=== PATIENT | male | born 1955 | race Caucasian/White ===

== ENCOUNTER 2016-04-08 10:57 | Inpatient (IN) ==
[2016-04-08] MEDS ORDERED: ONDANSETRON 4 MG/2 ML VIAL IV ONE (11:29)
--- NOTE | 2016-04-08 11:30 | Emergency Department Note ---
General Adult HPI - General Chief complaint: Weakness Stated complaint: Weakness Time Seen by Provider: 04/08/16 11:25 Source: patient, family Mode of arrival: ambulatory Limitations: no limitations - History of Present Illness HPI Narrative: This is a long-term alcoholic who hasn't had much medical care recently. He has become edematous and quite jaundiced. Also bloated with ascites and nauseated. Last drink this morning. - Related Data Home Medications Medication Instructions Recorded Confirmed amiodarone 200 mg tablet 200 mg PO QDAY tab 11/16/14 04/08/16 famotidine 20 mg tablet 20 mg PO QHS tab 11/16/14 04/08/16 furosemide 40 mg tablet 40 mg PO DAILY tab 11/16/14 04/08/16 glipizide 5 mg tablet 5 mg PO DAILY tab 11/16/14 04/08/16 magnesium oxide 400 mg tablet 400 mg PO BID tab 11/16/14 04/08/16 metformin 1,000 mg tablet 2,500 mg PO DAILY tab 11/16/14 04/08/16 potassium chloride ER 10 mEq 10 meq PO QDAY tab 11/16/14 04/08/16 tablet,extended release Previous Rx's Medication Instructions Recorded carvedilol 25 mg tablet 25 mg PO BID 90 Days 11/21/14 dabigatran etexilate 150 mg capsule 150 mg PO BID 90 Days 11/21/14 folic acid 1 mg tablet 1 mg PO QDAY 90 Days 11/21/14 Albuterol Sulfate 2.5 mg IH 3-4XD #60 ml 12/10/15 Amoxicillin/Potassium Clav 875 mg PO Q12H #20 tablet 03/13/16 [Augmentin] Allergies Allergy/AdvReac Type Severity Reaction Status Date / Time No Known Drug Allergies Allergy Verified 03/13/16 15:15 Review of Systems Constitutional: Denies: fever, chills Eyes: Denies: eye pain ENT ED: Denies: ear pain Cardiovascular: Denies: chest pain Respiratory: Denies: cough, dyspnea Gastrointestinal: Reports: nausea. Denies: abdominal pain, vomiting Genitourinary: Denies: urgency Musculoskeletal: Denies: back pain Integumentary: Denies: rash Neurological: Denies: headache Past Medical History - Past Medical History Medical history: Reports: asthma, atrial fibrillation (status post ablation), CHF, COPD, diabetes, hyperlipidemia, hypertension, other (alcohol abuse) Surgical history ED: Reports: cholecystectomy, herniorrhaphy, other (Right arm surgeries 2, left biceps repair, ablation) Psychiatric history: Reports: depression - Social History Alcohol use: Reports: Heavy Drug use: Reports: none Physical Exam - General Limitations: no limitations General appearance: alert - Head Head exam: atraumatic - Eye Eye exam: Present: normal appearance - ENT ENT exam: normal exam - Neck Neck exam: Present: normal inspection - Chest Chest inspection: Present: normal inspection - Respiratory Respiratory exam: Present: normal lung sounds bilaterally - Cardiovascular Cardiovascular exam: Present: regular rate, normal rhythm, normal heart sounds - Abdominal Exam Abdominal exam: Present: soft, distention, tenderness, ascites. Absent: guarding, rebound, rigidity - Rectal Exam Rectal exam: Present: deferred - Neurological Exam Neurological exam: Present: alert - Psychiatric Psychiatric exam: Present: normal affect - Skin Skin exam: Present: warm, dry, other (very jaundiced) Course Vital Signs Temperature 97.1 F L 04/08/16 10:57 Respiratory Rate 20 04/08/16 10:57 Blood Pressure 91/58 04/08/16 10:57 Pulse Oximetry (%) 98 04/08/16 10:57 Temperature 97.1 F L 04/08/16 10:57 Pulse Rate 122 H 04/08/16 14:15 Respiratory Rate 13 04/08/16 14:15 Blood Pressure 131/92 04/08/16 14:15 Pulse Oximetry (%) 98 04/08/16 14:15 Medical Decision Making - [facility] Narrative Medical decision making narrative: This patient will be admitted to the hospital by Dr. Moody for alcoholic hepatitis and jaundice. - Lab Data Lab results reviewed: Yes I reviewed the patient's lab results. Result diagrams: 04/08/16 11:27 04/08/16 11:35 Lab Results 04/08/16 04/08/16 04/08/16 Range/Units 11:27 11:35 11:35 WBC 6.4 (4.5-11.0) K/mcL RBC 3.63 L (4.50-5.90) M/mcL Hgb 12.2 L (13.5-16.5) g/dL Hct 36.5 L (41.0-55.0) % MCV 100.7 H (80.0-100.0) fL MCH 33.6 (26.0-34.0) pg MCHC 33.4 (31.0-36.0) g/dL RDW 17.1 H (11.5-14.5) % Plt Count 108 L (140-440) K/mcL MPV 10.1 (7.4-10.4) fL Total Counted 100 Seg Neutrophils % 69 (38-78) % Band Neutrophils % 2 (0-10) % Lymphocytes % 11 L (15-49) % Monocytes % (Manual) 17 H (1-9) % Eosinophils % (Manual) 1 (0-7) % Platelet Estimate Decreased A (NORMAL) RBC Morphology Abnorm A (NORMAL) Anisocytosis 1+ A (NONE SEEN) Macrocytosis 1+ A (NONE SEEN) Target Cells 1+ A (NONE SEEN) PT (11.9-14.5) sec INR (0.9-1.1) Sodium 123 L (133-145) mmol/L Potassium 2.8 L* (3.3-5.1) mmol/L Chloride 81 L (96-108) mmol/L Carbon Dioxide 22 (22-30) mmol/L Anion Gap 20.0 H (8-16) BUN 19 (6-20) mg/dl Creatinine < 1.3 H (0.7-1.2) mg/dl GFR Calculation Not Reportable Glucose 141 H (70-105) mg/dL Calcium 8.2 L (8.6-10.4) mg/dl Total Bilirubin 40.5 H (0.0-1.0) mg/dL AST 212 H (0-37) U/l ALT 60 H (0-40) U/l Alkaline Phosphatase 569 H (39-117) U/L Ammonia (16-60) mcmol/L Total Protein TNP Albumin 2.9 L (3.2-5.2) gm/dL Globulin Not Reportable Albumin/Globulin Ratio Not Reportable Lipase 29 (7-60) U/L Urine Color Urine Appearance Urine pH (5.0-9.0) Ur Specific [place] (1.000-1.035) Urine Protein (NEG) mg/dL Urine Glucose (UA) (NEG) mg/dL Urine Ketones (NEG) mg/dL Urine Occult Blood (<0.03) mg/dL Urine Nitrate (NEG) Urine Bilirubin (NEG) mg/dL Urine Ictotest (NEG) Prot Sulfosalicylic Acd (NEG) mg/dL Urine Urobilinogen (NEG) mg/dL Ur Leukocyte Esterase (NEG) /uL Urine RBC (0-1) /hpf Urine WBC (0-4) /hpf Ur Squamous Epith Cells (0-4) /hpf Urine Bacteria (0) /hpf Hyaline Casts (0-2) /lpf Granular Casts (0) /lpf Urine Mucus (0) /hpf Ur Culture Indicated? Ethyl Alcohol 0.127 H (<0.010) gm/dl 04/08/16 04/08/16 04/08/16 Range/Units 11:35 12:35 13:41 WBC (4.5-11.0) K/mcL RBC (4.50-5.90) M/mcL Hgb (13.5-16.5) g/dL Hct (41.0-55.0) % MCV (80.0-100.0) fL MCH (26.0-34.0) pg MCHC (31.0-36.0) g/dL RDW (11.5-14.5) % Plt Count (140-440) K/mcL MPV (7.4-10.4) fL Total Counted Seg Neutrophils % (38-78) % Band Neutrophils % (0-10) % Lymphocytes % (15-49) % Monocytes % (Manual) (1-9) % Eosinophils % (Manual) (0-7) % Platelet Estimate (NORMAL) RBC Morphology (NORMAL) Anisocytosis (NONE SEEN) Macrocytosis (NONE SEEN) Target Cells (NONE SEEN) PT 15.5 H (11.9-14.5) sec INR 1.2 H (0.9-1.1) Sodium (133-145) mmol/L Potassium (3.3-5.1) mmol/L Chloride (96-108) mmol/L Carbon Dioxide (22-30) mmol/L Anion Gap (8-16) BUN (6-20) mg/dl Creatinine (0.7-1.2) mg/dl GFR Calculation Glucose (70-105) mg/dL Calcium (8.6-10.4) mg/dl Total Bilirubin (0.0-1.0) mg/dL AST (0-37) U/l ALT (0-40) U/l Alkaline Phosphatase (39-117) U/L Ammonia 64 H (16-60) mcmol/L Total Protein Albumin (3.2-5.2) gm/dL Globulin Albumin/Globulin Ratio Lipase (7-60) U/L Urine Color [place] Urine Appearance Clear Urine pH 5.0 (5.0-9.0) Ur Specific [place] 1.017 (1.000-1.035) Urine Protein 30 A (NEG) mg/dL Urine Glucose (UA) 50 A (NEG) mg/dL Urine Ketones Color interference (NEG) mg/dL Urine Occult Blood Neg (<0.03) mg/dL Urine Nitrate Neg (NEG) Urine Bilirubin 4.0 A (NEG) mg/dL Urine Ictotest Pos A (NEG) Prot Sulfosalicylic Acd 1+ (NEG) mg/dL Urine Urobilinogen 4.0 A (NEG) mg/dL Ur Leukocyte Esterase Neg (NEG) /uL Urine RBC 0 (0-1) /hpf Urine WBC 0 (0-4) /hpf Ur Squamous Epith Cells 2 (0-4) /hpf Urine Bacteria 0 (0) /hpf Hyaline Casts 6 H (0-2) /lpf Granular Casts 3 H (0) /lpf Urine Mucus Many A (0) /hpf Ur Culture Indicated? No Ethyl Alcohol (<0.010) gm/dl - Radiology Data Radiology results reviewed: Yes I reviewed the patient's radiology results. Disposition Clinical Impression: Alcoholic hepatitis Condition: Fair
[2016-04-08 12:30] LABS: Mean Cell Volume 100.7 fL (80.0-100.0); Mean Corpuscular HGB Conc 33.4 g/dL (31.0-36.0); Mean Corpuscular Hemoglobin 33.6 pg (26.0-34.0); Platelet Count 108 K/mcL (140-440); RBC 3.63 M/mcL (4.50-5.90); Red Cell Distribution Width 17.1 % (11.5-14.5)
[2016-04-08 13:04] LABS: ALT/SGPT 60 U/l (0-40); Albumin 2.9 gm/dL (3.2-5.2); Alkaline Phosphatase 569 U/L (39-117); Blood Urea Nitrogen 19 mg/dl (6-20); Lipase 29 U/L (7-60)
[2016-04-08 13:07] LABS: Anisocytosis 1+ (NONE SEEN); Band Neutrophils % 2 % (0-10); Eosinophils % (Manual) 1 % (0-7); Lymphocytes % 11 % (15-49); Macrocytosis 1+ (NONE SEEN); Monocytes % (Manual) 17 % (1-9); Platelet Estimate DECREASED (NORMAL); RBC Morphology ABNORM (NORMAL); Segmented Neutrophils % 69 % (38-78); Target Cells 1+ (NONE SEEN)
[2016-04-08 13:54] LABS: Appearance,Urine CLEAR; Bacteria,Urine 0 /hpf (0); Color,Urine ORANGE; Glucose,Urine (UA) 50 mg/dL (NEG); Ictotest,Urine POS (NEG); Leukocyte Esterase,Urine NEG /uL (NEG); Mucus,Urine MANY /hpf (0); Nitrate,Urine NEG (NEG); Protein,Urine 30 mg/dL (NEG); Specific Gravity,Urine 1.017 (1.000-1.035); Sulfosalicylic Acid,Urine 1+ mg/dL (NEG); Urine Blood NEG mg/dL (<0.03); Urine Granular Cast 3 /lpf (0); Urine Hyaline Cast 6 /lpf (0-2); Urine RBC 0 /hpf (0-1); Urine Squamous Epithelial Cell 2 /hpf (0-4); Urine WBC 0 /hpf (0-4)
--- NOTE | 2016-04-08 14:28 | Ultrasound Report ---
CLINICAL INFORMATION: Abdominal pain. Constipation. Abdominal distention. TECHNIQUE: Grayscale and color flow spectral imaging COMPARISON: 03/14/2014 FINDINGS: Previous cholecystectomy. No intrahepatic bile duct dilatation. Common bile duct is not well visualized. Liver is echogenic and sonographically dense. Appearance is consistent with hepatic steatosis. Findings are unchanged. No discrete mass identified. Liver contour is smooth. No evidence for cirrhosis. No ascites. Pancreas is poorly visualized. Right kidney measures 14.0 x 6.3 x 6.4 cm per no solid or cystic mass. No hydronephrosis. IMPRESSION: 1. Previous cholecystectomy. 2. Echogenic liver consistent with hepatic steatosis. No focal abnormality. Interpreted and Authenticated by: Terry Mehta 04/08/16
[2016-04-08] MEDS ORDERED: HYDROmorphone 2 MG/ML SYRINGE IV ONE (14:54)
[2016-04-08] MEDS ORDERED: DIAZEPAM 5 MG TABLET PO PRN (17:21)
[2016-04-08] MEDS ORDERED: BISACODYL 10 MG SUPP.RECT PR PRN (17:21)
[2016-04-08] MEDS ORDERED: guaiFENesin/CODEINE 10 ML UDC PO PRN (17:21)
[2016-04-08] MEDS: 0.9 % SODIUM CHLORIDE 1,000 ML IV SCH (17:39)
[2016-04-08] MEDS: ONDANSETRON 4 MG/2 ML VIAL IV PRN (17:42)
[2016-04-08] MEDS ORDERED: PHYTONADIONE 5 MG TABLET PO ONE (18:09)
[2016-04-08 18:33] LABS: Estimated Average Glucose(eAG) 108 mg/dL; Hemoglobin A1C 5.4 % HGB (4.0-6.0)
[2016-04-08 19:10] LABS: Lipase 25 U/L (7-60)
[2016-04-08 20:02] LABS: Bilirubin,Direct 34.2 mg/dL (0.0-0.3); Bilirubin,Indirect 8.6 mg/dL (0.2-0.8)
[2016-04-08] MEDS: HYDROmorphone 2 MG/ML SYRINGE IV PRN (20:22)
[2016-04-08] MEDS: DOCUSATE SODIUM 100 MG CAPSULE PO SCH (20:23)
[2016-04-08] MEDS: SENNOSIDES/DOCUSATE SODIUM 1 TAB TABLET PO SCH (20:24)
[2016-04-08] MEDS: CYANOCOBALAMIN (VITAMIN B-12) 500 MCG TABLET PO SCH (20:26)
[2016-04-08] MEDS: HEPARIN 5,000 UNIT/ML VIAL SQ SCH (20:26)
[2016-04-08] MEDS: 0.9 % SODIUM CHLORIDE 10 ML SYRINGE IV SCH (21:15)
[2016-04-08] MEDS ORDERED: 0.9 % SODIUM CHLORIDE 10 ML SYRINGE IV SCH (22:00)
[2016-04-08] MEDS: POTASSIUM CHLORIDE 20 MEQ PACKET PO PRN (23:43)
[2016-04-09] MEDS: DIAZEPAM 5 MG TABLET PO PRN ×2 (00:28→12:50)
[2016-04-09] MEDS ORDERED: DIAZEPAM 5 MG TABLET ONE (00:40)
[2016-04-09] MEDS: HYDROmorphone 2 MG/ML SYRINGE IV PRN ×4 (03:23→20:37)
[2016-04-09] MEDS: ONDANSETRON 4 MG/2 ML VIAL IV PRN ×4 (03:23→20:34)
[2016-04-09] MEDS ORDERED: POTASSIUM CHLORIDE 20 MEQ PACKET PO ONE (04:28)
[2016-04-09] MEDS ORDERED: POTASSIUM CHLORIDE 20 MEQ PACKET ONE (04:43)
[2016-04-09 07:03] LABS: Mean Cell Volume 100.4 fL (80.0-100.0); Mean Corpuscular HGB Conc 34.3 g/dL (31.0-36.0); Mean Corpuscular Hemoglobin 34.4 pg (26.0-34.0); Platelet Count 103 K/mcL (140-440); RBC 3.36 M/mcL (4.50-5.90); Red Cell Distribution Width 16.8 % (11.5-14.5)
[2016-04-09] MEDS: 0.9 % SODIUM CHLORIDE 10 ML SYRINGE IV SCH ×3 (07:06→22:00)
[2016-04-09 07:11] LABS: ALT/SGPT 54 U/l (0-40); Albumin 2.9 gm/dL (3.2-5.2); Alkaline Phosphatase 533 U/L (39-117); Blood Urea Nitrogen 23 mg/dl (6-20); Uric Acid 4.6 mg/dL (2.5-8.0)
[2016-04-09 08:24] LABS: Anisocytosis 1+ (NONE SEEN); Band Neutrophils % 4 % (0-10); Lymphocytes % 10 % (15-49); Macrocytosis 1+ (NONE SEEN); Monocytes % (Manual) 10 % (1-9); Platelet Estimate DECREASED (NORMAL); RBC Morphology ABNORM (NORMAL); Segmented Neutrophils % 76 % (38-78); Target Cells FEW (NONE SEEN)
[2016-04-09] MEDS: PANTOPRAZOLE 40 MG VIAL IV SCH (08:36)
[2016-04-09] MEDS: THIAMINE 100 MG in 0.9 % SODIUM CHLORIDE 50 ML IV SCH (09:00)
--- NOTE | 2016-04-09 10:13 | Internal Med Progress Note ---
Medical - PN: Subj Patient information: Note initiated : 04/09/16 at 10:09 am Service Date, if different from initiated Date: [] Patient: Jeffrey Mo 60 y/o M admitted on 04/08/16 for Weakness/Alcoholic Hepatitis. Chief Complaint: [] Interval history: 04/08- patient admitted with severe jaundice/alcoholic hepatitis. Abdominal ultrasound unremarkable for common bile duct stone. Alcohol level positive. drinks up to a gallon a day. Extensive fatty liver change along with hepatomegaly on imaging. GI consulted. MRCP today. Elevated pro-calcitonin at 0.89. await infectious workup prior to starting prednisone. Maddreys discriminant function 50. bilirubin and 42. Sodium 143, 2/2- bilirubin at 40. persistent tachycardia. no obvious source of infection. If MRCP negative will start prednisone today for acute on chronic hepatitis. Aggressive alcohol cessation counseling performed. High-risk DTs. Patient on CiWA protocol-benzodiazepines as needed. Continue ICU care - Constitutional Vitals: Vital Signs Temp Pulse Resp BP Pulse Ox 98.6 F 121 H 17 111/76 92 04/09/16 04:00 04/09/16 04:00 04/09/16 06:00 04/09/16 06:00 04/09/16 06:00 Period Temp Pulse Resp BP Sys/Doss Pulse Ox Last 24 Hr 98.6 F-98.7 F 121-134 15-25 103-134/71-89 92-97 Intake and Output 04/08/16 04/09/16 04/09/16 21:59 05:59 13:59 Intake Total 300 / 300 480 / 480 Output Total 100 / 100 150 / 150 Balance 200 / 200 330 / 330 Weight 255 lb Intake & Output: Intake & Output 04/08/16 04/09/16 04/09/16 21:59 05:59 13:59 Intake Total 300 / 300 480 / 480 Output Total 100 / 100 150 / 150 Balance 200 / 200 330 / 330 Weight 255 lb Intake: Oral 300 / 300 480 / 480 Output: Void Amount 100 / 100 Urine/Stool Mix 100 / 100 50 / 50 General appearance: cooperative Exam: anxious and extremely distressed Icterus Distended abdomen Nonlabored breathing fatigued lethargic Medical - PN: Obj Da - Labs CBC & Chem 7: 04/09/16 03:50 04/09/16 03:50 Labs: Abnormal Lab Results 04/09/16 04/09/16 04/09/16 03:50 03:50 03:50 RBC 3.36 L Hgb 11.6 L Hct 33.8 L MCV 100.4 H MCH 34.4 H RDW 16.8 H Plt Count 103 L Lymphocytes % 10 L Monocytes % (Manual) 10 H Platelet Estimate Decreased A RBC Morphology Abnorm A Polychromasia Few A Anisocytosis 1+ A Macrocytosis 1+ A Target Cells Few A ESR PT 16.4 H INR 1.3 H Sodium 123 L Potassium 3.2 L Chloride 83 L Anion Gap 18.0 H BUN 23 H Creatinine < 1.6 H Calcium 7.9 L Phosphorus 2.0 L Magnesium 1.0 L Total Bilirubin 40.8 H Direct Bilirubin 33.0 H Indirect Bilirubin AST 210 H ALT 54 H Alkaline Phosphatase 533 H Lactate Dehydrogenase 395 H C-Reactive Protein Albumin 2.9 L 04/08/16 04/08/16 04/08/16 17:22 17:22 17:22 RBC Hgb Hct MCV MCH RDW Plt Count Lymphocytes % Monocytes % (Manual) Platelet Estimate RBC Morphology Polychromasia Anisocytosis Macrocytosis Target Cells ESR 19 H PT INR Sodium Potassium Chloride Anion Gap BUN Creatinine Calcium Phosphorus Magnesium Total Bilirubin 42.8 H Direct Bilirubin 34.2 H Indirect Bilirubin 8.6 H AST ALT Alkaline Phosphatase Lactate Dehydrogenase C-Reactive Protein 5.7 H Albumin Meds: Medications Amiodarone HCl (Cordarone) 200 mg PO QAC [facility] Bisacodyl (Dulcolax) 10 mg [place] Q2-3DAYS PRN PRN Reason: Constipation Cyanocobalamin (Vitamin B-12) 1,000 mcg PO BID [facility] Stop: 04/13/16 09:01 Last Admin: 04/08/16 20:26 Dose: 1,000 mcg Diazepam (Valium) 10 mg IV Q2HP PRN PRN Reason: Alcohol Withdrawal Diazepam (Valium) 5 mg PO Q4HP PRN PRN Reason: Anxiety Diltiazem HCl (Cardizem Cd) 180 mg PO DAILY [facility] Docusate Sodium (Colace) 100 mg PO BID [facility] Last Admin: 04/08/16 20:23 Dose: Not Given Folic Acid (Folic Acid) 1 mg PO DAILY [facility] Guaifenesin/Codeine Phosphate (Robitussin Ac) 10 ml PO Q4HP PRN PRN Reason: Cough Heparin Sodium (Porcine) (Heparin) 5,000 unit SQ Q12 [facility] Last Admin: 04/08/16 20:26 Dose: 5,000 unit Hydromorphone HCl (Dilaudid) 0 mg IV Q4HP PRN PRN Reason: Pain Last Admin: 04/09/16 08:31 Dose: 0.25 mg Magnesium Sulfate (Magnesium Sulfate) 2 gm in 50 mls @ 50 mls/hr IV UD PRN PRN Reason: MG = or < 1.7 Sodium Chloride (Sodium Chloride 0.9%) 1,000 mls @ 50 mls/hr IV .Q20H [facility] Stop: 04/11/16 05:20 Last Admin: 04/08/16 17:39 Dose: 50 mls/hr Thiamine HCl 100 mg/ Sodium (Chloride) 51 mls @ 50 mls/hr IV DAILY [facility] Stop: 04/11/16 10:02 Iron Carb/Multivit/[place]/Folic Acid (Multivitamin W/Minerals) 1 tab PO DAILY [facility] Ondansetron HCl (Zofran) 4 mg IV Q4-6HP PRN PRN Reason: Nausea And Vomiting Last Admin: 04/09/16 08:36 Dose: 4 mg Pantoprazole Sodium (Protonix) 40 mg IV QAMAC [facility] Last Admin: 04/09/16 08:36 Dose: 40 mg Potassium Chloride (Klor-Con) 40 meq PO DAILYP PRN PRN Reason: K+ < 3.5 Last Admin: 04/08/16 23:43 Dose: 40 meq Senna/Docusate Sodium (Senna Plus Tablet) 1 tab PO HS [facility] Last Admin: 04/08/16 20:24 Dose: Not Given Sodium Chloride (Saline Flush) 10 ml IV Q8 [facility] Last Admin: 04/09/16 07:06 Dose: Not Given Medical - PN: A/P - Time Spent With Patient Total time spent is greater than 50% in coordination of care (as documented) at patient's floor/unit and/or counseling patient: Greater than 35 minutes (critical care time) (1) Acute liver failure without hepatic coma Status: Acute Assessment and plan: * Acute liver failure-secondary to alcoholic hepatitis. Danielles discriminant function 50. Meld Na score 31- 20% mortality rate. GI consulted. Liver ultrasound no evidence of biliary obstruction. INR 1.3 status post 20 mg vitamin K as per GI. Synthetic function preserved in light of low INR and albumin 2.9. * Acute alcoholic hepatitis- start prednisolone if negative ERCP. GI consulted. Aggressive counseling performed * High risk delirium tremens-continue benzodiazepines CIWA protocol * Euvolemic hyponatremia-secondary to excessive alcoholism and liver failure * hypokalemia on aggressive replacement-potassium up from 2.8->3.2 * history of A. fib on amiodarone/diltiazem Plan * Await GI consult * Await MRCP * Start prednisolone if negative infectious workup/MRCP * DT management * Electrolyte management * Pre-existing condition management as above * high risk mortality based on MELD Na score * continue ICU care Current Visit: Yes Medical - PN: Qual - Stroke Symptom Onset Unknown: No - VTE Deep Vein Thrombosis/Pulmonary Embolism Present on Admission: No
--- NOTE | 2016-04-09 11:25 | Magnetic Resonance Report ---
ORIGINAL REPORT CLINICAL INFORMATION: Severely elevated bilirubin. Alcoholic hepatitis. TECHNIQUE: Noncontrast enhanced abdominal MRI scan. Routine MRCP COMPARISON: Previous abdominal ultrasound dated 04/08/2016 FINDINGS: Liver is enlarged and irregular in contour consistent with cirrhosis. There is mild ascites. Heterogeneous hepatic parenchyma in the right lobe. A well-defined mass is not identified. No discrete mass was identified on ultrasound. No bile duct dilatation. MRCP study demonstrates only faint signal within the common hepatic duct. No common bile duct dilatation. No intrahepatic bile duct dilatation. Poor quality MRCP is consistent with hepatic dysfunction. No evidence for obstruction. Pancreas is negative. Spleen is negative. No splenomegaly. Adrenal glands and kidneys are negative. This examination was reviewed with Dr. Coates. IMPRESSION: 1. Poor quality MRCP. Consistent with hepatic failure. No dilated bile ducts 2. Nodular liver parenchyma suggests cirrhosis. Small amount of ascitic fluid. 3. Heterogeneous hepatic parenchyma. No well-defined discrete mass. ADDENDUM #1 ADDENDUM: This case was discussed with Dr. Coleman. The portal vein is patent and normal. Hepatic veins and inferior vena cava are patent and normal. No Budd Chiari syndrome. No portal venous thrombosis. Interpreted and Authenticated by: Terry Mehta 04/11/16
[2016-04-09] MEDS: DOCUSATE SODIUM 100 MG CAPSULE PO SCH ×2 (12:18→20:34)
[2016-04-09] MEDS: prednisoLONE 15 MG/5 ML ORAL SOL PO SCH (12:33)
[2016-04-09] MEDS: HEPARIN 5,000 UNIT/ML VIAL SQ SCH ×2 (12:49→20:33)
[2016-04-09] MEDS: AMIODARONE HCL 200 MG TABLET PO SCH (12:50)
[2016-04-09] MEDS: CYANOCOBALAMIN (VITAMIN B-12) 500 MCG TABLET PO SCH ×2 (12:50→20:34)
[2016-04-09] MEDS: DILTIAZEM 180 MG CAP.XL.24H PO SCH (12:50)
[2016-04-09] MEDS: MULTIVIT,THER IRON,CA,FA & MIN 1 TABLET PO SCH (12:51)
[2016-04-09] MEDS: FOLIC ACID 1 MG TABLET PO SCH (12:51)
[2016-04-09] MEDS: 0.9 % SODIUM CHLORIDE 1,000 ML IV SCH (12:53)
[2016-04-09] MEDS: MAGNESIUM SULFATE 2 GM/50 ML BAG IV PRN (16:31)
[2016-04-09] MEDS: POTASSIUM CHLORIDE 20 MEQ PACKET PO PRN (16:32)
[2016-04-09] MEDS: SENNOSIDES/DOCUSATE SODIUM 1 TAB TABLET PO SCH (20:34)
[2016-04-10] MEDS: HYDROmorphone 2 MG/ML SYRINGE IV PRN ×3 (00:09→21:48)
[2016-04-10] MEDS: DIAZEPAM 10 MG/2 ML SYRINGE IV PRN ×2 (00:09→21:47)
[2016-04-10] MEDS ORDERED: HYDROmorphone 2 MG/ML SYRINGE ONE ×2 (00:15→04:24)
[2016-04-10] MEDS ORDERED: DIAZEPAM 10 MG/2 ML SYRINGE ONE (04:24)
[2016-04-10 05:39] LABS: Mean Cell Volume 100.9 fL (80.0-100.0); Mean Corpuscular Hemoglobin 34.3 pg (26.0-34.0); Platelet Count 101 K/mcL (140-440); RBC 3.18 M/mcL (4.50-5.90); Red Cell Distribution Width 17.3 % (11.5-14.5)
[2016-04-10] MEDS: 0.9 % SODIUM CHLORIDE 10 ML SYRINGE IV SCH ×3 (05:39→21:50)
[2016-04-10 06:31] LABS: ALT/SGPT 55 U/l (0-40); Albumin 2.8 gm/dL (3.2-5.2); Alkaline Phosphatase 496 U/L (39-117); Blood Urea Nitrogen 34 mg/dl (6-20); Magnesium 1.6 mg/dL (1.6-2.5)
[2016-04-10 06:46] LABS: Anisocytosis 1+ (NONE SEEN); Band Neutrophils % 2 % (0-10); Lymphocytes % 2 % (15-49); Macrocytosis 1+ (NONE SEEN); Monocytes % (Manual) 8 % (1-9); Platelet Estimate DECREASED (NORMAL); RBC Morphology ABNORM (NORMAL); Segmented Neutrophils % 88 % (38-78); Target Cells 1+ (NONE SEEN)
[2016-04-10 07:06] LABS: Bilirubin,Direct 33.5 mg/dL (0.0-0.3)
--- NOTE | 2016-04-10 07:07 | Consultation ---
DATE OF CONSULTATION: 04/09/2016 DATE OF DICTATION AND CONSULTATION: 04/09/2016 IMPRESSION: 1. Acute and chronic alcoholic hepatitis. 2. Cirrhosis. 3. Fatty liver. 4. Electrolyte disturbances including slightly low sodium, slightly low potassium. 5. Malnutrition as evidenced by low albumin. 6. History of atrial fibrillation, asthma, congestive heart failure, chronic obstructive pulmonary disease, diabetes type 2, hypertension. 7. Impending delirium tremens. RECOMMENDATIONS: Alcohol rehab if the patient is willing. Right now the best information is he probably has no interest in stopping alcohol use even though he was strongly encouraged to totally stop drinking. I have no objections to the patient being discharged from the hospital when a diet is tolerated, the electrolytes are reasonably stable, and he is not in DTs. Liver enzymes will be monitored. Bilirubin should slowly decrease. Currently I do not see any need for EGD or colonoscopy. I see no need for an ERCP. The MRCP did not show any evidence of obstruction in the biliary system, although the study was of poor quality. There were no dilated bile ducts. There was a nodular liver consistent with cirrhosis. However, the ultrasound showed some changes consistent with fatty liver. HISTORY: Jeffrey Mo is a 60-year-old male patient who works at [employer]. I am uncertain if he has a primary care provider. ER comments include he is an alcoholic who has not had much medical care recently. The patient stated the reason he presented to the emergency department is because he became yellow. He has been yellow for about 4 days. He has a poor appetite. He has had nausea and vomiting, but I do not believe he had significant blood in the emesis. He denies constipation, diarrhea, has soft stool, stool is dark, but I do not believe the description fits melena. He denied any red blood per rectum. PAST MEDICAL HISTORY: Diabetes type 2, asthma, atrial fibrillation, CHF, maybe COPD, hypertension, hyperlipidemia, and of course the alcohol abuse. Additional past medical history does include back pain and arthritis. PAST SURGICAL HISTORY: Cholecystectomy perhaps around 2013. He did have a torn biceps on the left arm. The right arm had an infection and did have a drain, and then he had some problem on the ulnar nerve. He has some limited function of his fingers in the right arm or hand. He had an ablation in the heart, I believe to help with atrial fibrillation. ALLERGIES: NO KNOWN DRUG ALLERGIES. CURRENT MEDICATIONS: Prior to admission medications from home: Amiodarone 200 mg every day. Diltiazem 180 mg every day. Lasix 40 mg every day. Robaxin 500 mg 4 times a day. Ultram 50 mg 3 times a day. HABITS: Water: When he is working he drinks very little water. When he is home he may have 3-4 bottles of water that may approximate a liter. Coffee, caffeinated beverages: None. Smoking: None. Alcohol: He states for about 10 years he has been drinking about a half of a fifth a day. He may have consumed a little more recently. FAMILY HISTORY: Father around 1995. He had colon cancer. I believe the diagnosis was made around age 55. Mother is living. One brother of heart problems. REVIEW OF SYSTEMS: Genitourinary: The patient denies pain or burning on urination. Respiratory: He does have some cough. He denied chest pain, palpitations, but does have a history of atrial fibrillation. However, he is fairly regular at this time. He does complain of some back pain or discomfort. He is overweight. PHYSICAL EXAMINATION: GENERAL: The patient was alert and seemed in no acute distress and seemed oriented at this time. VITAL SIGNS: Temperature was 98.0, pulse 118, respiratory rate 18, blood pressure is 125/86. Weight is about 255 pounds. Height uncertain. EARS: Hearing roughly symmetrical. MOUTH: Moist. LUNGS: Clear. No wheezes noted. HEART: Regular at this time. No murmurs noted. ABDOMEN: Soft. Bowel sounds are present. Abdomen is somewhat obese. There may have been a defect in the upper central abdomen; however no definite hernia was identified at this time. Spleen is not palpable. Liver span is around 8 cm in midclavicular line. SKIN: Obviously jaundiced. RECTAL: No rectal exam was performed at this time. LABORATORY STUDIES: Sodium is 123, potassium 3.2, chloride was 83, BUN was 23, creatinine was less than 1.6. Total bilirubin is 40.8. Today on the 2nd it was 42.8 earlier. AST is 210. ALT was 54. Alkaline phosphatase is 533. INR is 1.3 on the 2nd; it was 1.2 on the 1st. ADDITIONAL COMMENTS: The patient was advised to get some AquaMEPHYTON. I believe some was given. I did order 20 mg IV, IM, or subcutaneous. This was not because his INR was so prolonged, but to see how much improvement he would have to somewhat gain better understanding of liver function. CBC showed a hemoglobin of 11.6, hematocrit 33.8. A white count was 6.7. The MCV was 100.4. ESR is 19. IMAGING STUDIES: The abdominal ultrasound showed evidence of a cholecystectomy. The echogenicity of the liver was consistent with a fatty liver. No evidence of ascites was found. MRCP was accomplished which was determined to be a poor quality study. There were no dilated ducts found. The nodular liver was consistent with cirrhosis. There was a tiny amount of ascites fluid noted. No stone was seen. CRD:lc Job ID: [id number] Doc ID: [id number] Ray Coates MD
[2016-04-10] MEDS: DOCUSATE SODIUM 100 MG CAPSULE PO SCH ×2 (07:14→21:22)
[2016-04-10] MEDS: PANTOPRAZOLE 40 MG VIAL IV SCH (07:30)
[2016-04-10] MEDS: ONDANSETRON 4 MG/2 ML VIAL IV PRN ×2 (07:30→17:53)
[2016-04-10] MEDS: CYANOCOBALAMIN (VITAMIN B-12) 500 MCG TABLET PO SCH ×2 (07:37→21:47)
[2016-04-10] MEDS: prednisoLONE 15 MG/5 ML ORAL SOL PO SCH (07:37)
[2016-04-10] MEDS: MAGNESIUM SULFATE 2 GM/50 ML BAG IV PRN (07:37)
[2016-04-10] MEDS: HEPARIN 5,000 UNIT/ML VIAL SQ SCH ×2 (07:37→21:46)
[2016-04-10] MEDS: DIAZEPAM 5 MG TABLET PO PRN ×3 (07:38→16:36)
[2016-04-10] MEDS: FOLIC ACID 1 MG TABLET PO SCH (07:38)
[2016-04-10] MEDS: MULTIVIT,THER IRON,CA,FA & MIN 1 TABLET PO SCH (07:38)
[2016-04-10] MEDS: DILTIAZEM 180 MG CAP.XL.24H PO SCH (07:38)
[2016-04-10] MEDS: AMIODARONE HCL 200 MG TABLET PO SCH (07:38)
[2016-04-10] MEDS: 0.9 % SODIUM CHLORIDE 1,000 ML IV SCH (07:40)
[2016-04-10] MEDS: THIAMINE 100 MG in 0.9 % SODIUM CHLORIDE 50 ML IV SCH (10:27)
--- NOTE | 2016-04-10 11:09 | Internal Med Progress Note ---
Medical - PN: Subj Patient information: Note initiated : 04/10/16 at 11:06 am Service Date, if different from initiated Date: [] Patient: Jeffrey Mo 60 y/o M admitted on 04/08/16 for Weakness/Alcoholic Hepatitis. Chief Complaint: [] Interval history: 04/08- patient admitted with severe jaundice/alcoholic hepatitis. Abdominal ultrasound unremarkable for common bile duct stone. Alcohol level positive. drinks up to a gallon a day. Extensive fatty liver change along with hepatomegaly on imaging. GI consulted. MRCP today. Elevated pro-calcitonin at 0.89. await infectious workup prior to starting prednisone. Maddreys discriminant function 50. bilirubin and 42. Sodium 143, 2/2- bilirubin at 40. persistent tachycardia. no obvious source of infection. If MRCP negative will start prednisone today for acute on chronic hepatitis. Aggressive alcohol cessation counseling performed. High-risk DTs. Patient on CiWA protocol-benzodiazepines as needed. Continue ICU care 2/3-worsening bilirubin @ 42.5. DTs requiring benzodiazepines. MRCP negative. Continue ICU care. On prednisolone 40. Maddreys discriminant function around 50. Continue close monitoring. Patient aggressively counseled on alcohol cessation. continue supportive management electrolytes replacement and crystalloids - Constitutional Vitals: Vital Signs Temp Pulse Resp BP Pulse Ox 97.9 F 115 H 11 L 122/84 95 04/10/16 04:00 04/10/16 01:15 04/10/16 06:00 04/10/16 06:00 04/10/16 06:00 Period Temp Pulse Resp BP Sys/Doss Pulse Ox Last 24 Hr 97.9 F-98.9 F 115-125 11-20 107-125/69-89 88-97 Intake and Output 04/09/16 04/10/16 04/10/16 21:59 05:59 13:59 Intake Total 410 / 410 50 / 50 988 / 988 Output Total 200 / 200 Balance 410 / 410 -150 / -150 988 / 988 Weight 259 lb 11.2 oz Intake & Output: Intake & Output 04/09/16 04/10/16 04/10/16 21:59 05:59 13:59 Intake Total 410 / 410 50 / 50 988 / 988 Output Total 200 / 200 Balance 410 / 410 -150 / -150 988 / 988 Weight 259 lb 11.2 oz Intake: IV 50 / 50 988 / 988 Sodium Chloride 0.9% 1, 938 / 938 000 ml @ 50 mls/hr IV . Q20H [facility] Rx#:[id number] Oral 360 / 360 50 / 50 Output: Void Amount 200 / 200 Other: Meal Dinner Percent of Meal Consumed 100% Feeding Ability Independent # Voids 3 # Bowel Movements 5 0 General appearance: no acute distress Exam: extreme icterus anxious and tremulous Sedated on benzodiazepines Tachycardic from 120s distended abdomen No lymphedema Medical - PN: Obj Da - Labs CBC & Chem 7: 04/10/16 04:25 04/10/16 04:25 Labs: Abnormal Lab Results 04/10/16 04/10/16 04/09/16 04:25 04:25 03:50 RBC 3.18 L Hgb 10.9 L Hct 32.1 L MCV 100.9 H MCH 34.3 H RDW 17.3 H Plt Count 101 L Seg Neutrophils % 88 H Lymphocytes % 2 L Monocytes % (Manual) Platelet Estimate Decreased A RBC Morphology Abnorm A Polychromasia Anisocytosis 1+ A Macrocytosis 1+ A Target Cells 1+ A ESR PT INR Sodium 123 L 123 L Potassium 3.2 L Chloride 85 L 83 L Carbon Dioxide 21 L Anion Gap 17.0 H 18.0 H BUN 34 H 23 H Creatinine < 1.6 H Glucose 179 H Calcium 7.9 L 7.9 L Phosphorus 2.0 L 2.0 L Magnesium 1.0 L Total Bilirubin 42.7 H 40.8 H Direct Bilirubin 33.5 H 33.0 H Indirect Bilirubin AST 197 H 210 H ALT 55 H 54 H Alkaline Phosphatase 496 H 533 H Lactate Dehydrogenase 406 H 395 H C-Reactive Protein Albumin 2.8 L 2.9 L 04/09/16 04/09/16 04/08/16 03:50 03:50 17:22 RBC 3.36 L Hgb 11.6 L Hct 33.8 L MCV 100.4 H MCH 34.4 H RDW 16.8 H Plt Count 103 L Seg Neutrophils % Lymphocytes % 10 L Monocytes % (Manual) 10 H Platelet Estimate Decreased A RBC Morphology Abnorm A Polychromasia Few A Anisocytosis 1+ A Macrocytosis 1+ A Target Cells Few A ESR 19 H PT 16.4 H INR 1.3 H Sodium Potassium Chloride Carbon Dioxide Anion Gap BUN Creatinine Glucose Calcium Phosphorus Magnesium Total Bilirubin Direct Bilirubin Indirect Bilirubin AST ALT Alkaline Phosphatase Lactate Dehydrogenase C-Reactive Protein Albumin 04/08/16 04/08/16 17:22 17:22 RBC Hgb Hct MCV MCH RDW Plt Count Seg Neutrophils % Lymphocytes % Monocytes % (Manual) Platelet Estimate RBC Morphology Polychromasia Anisocytosis Macrocytosis Target Cells ESR PT INR Sodium Potassium Chloride Carbon Dioxide Anion Gap BUN Creatinine Glucose Calcium Phosphorus Magnesium Total Bilirubin 42.8 H Direct Bilirubin 34.2 H Indirect Bilirubin 8.6 H AST ALT Alkaline Phosphatase Lactate Dehydrogenase C-Reactive Protein 5.7 H Albumin Meds: Medications Amiodarone HCl (Cordarone) 200 mg PO [facility] Last Admin: 04/10/16 07:38 Dose: 200 mg Bisacodyl (Dulcolax) 10 mg [place] Q2-3DAYS PRN PRN Reason: Constipation Cyanocobalamin (Vitamin B-12) 1,000 mcg PO BID [facility] Stop: 04/13/16 09:01 Last Admin: 04/10/16 07:37 Dose: 1,000 mcg Diazepam (Valium) 10 mg IV Q2HP PRN PRN Reason: Alcohol Withdrawal Last Admin: 04/10/16 00:09 Dose: 5 mg Diazepam (Valium) 5 mg PO Q4HP PRN PRN Reason: Anxiety Last Admin: 04/10/16 07:38 Dose: 5 mg Diltiazem HCl (Cardizem Cd) 180 mg PO DAILY [facility] Last Admin: 04/10/16 07:38 Dose: 180 mg Docusate Sodium (Colace) 100 mg PO BID [facility] Last Admin: 04/10/16 07:14 Dose: Not Given Folic Acid (Folic Acid) 1 mg PO DAILY [facility] [place] Last Admin: 04/10/16 07:38 Dose: 1 mg Guaifenesin/Codeine Phosphate (Robitussin Ac) 10 ml PO Q4HP PRN PRN Reason: Cough Heparin Sodium (Porcine) (Heparin) 5,000 unit SQ Q12 [facility] [place] Last Admin: 04/10/16 07:37 Dose: 5,000 unit Hydromorphone HCl (Dilaudid) 0 mg IV Q4HP PRN PRN Reason: Pain Last Admin: 04/10/16 00:09 Dose: 0.25 mg Magnesium Sulfate (Magnesium Sulfate) 2 gm in 50 mls @ 50 mls/hr IV UD PRN PRN Reason: MG = or < 1.7 Last Infusion: 04/10/16 10:25 Dose: Infused Sodium Chloride (Sodium Chloride 0.9%) 1,000 mls @ 50 mls/hr IV .Q20H [facility] Stop: 04/11/16 05:20 Last Admin: 04/10/16 07:40 Dose: 50 mls/hr Thiamine HCl 100 mg/ Sodium (Chloride) 51 mls @ 50 mls/hr IV DAILY [facility] Stop: 04/11/16 10:02 Last Admin: 04/10/16 10:27 Dose: 50 mls/hr Iron Carb/Multivit/Newspaper Manager/Folic Acid (Multivitamin W/Minerals) 1 tab PO DAILY [facility] Last Admin: 04/10/16 07:38 Dose: 1 tab Ondansetron HCl (Zofran) 4 mg IV Q4-6HP PRN PRN Reason: Nausea And Vomiting Last Admin: 04/10/16 07:30 Dose: 4 mg Pantoprazole Sodium (Protonix) 40 mg IV [facility] Last Admin: 04/10/16 07:30 Dose: 40 mg Potassium Chloride (Klor-Con) 40 meq PO DAILYP PRN PRN Reason: K+ < 3.5 Last Admin: 04/09/16 16:32 Dose: 40 meq Prednisone (Prednisolone) 40 mg PO [facility] Last Admin: 04/10/16 07:37 Dose: 40 mg Senna/Docusate Sodium (Senna Plus Tablet) 1 tab PO HS [facility] Last Admin: 04/09/16 20:34 Dose: Not Given Sodium Chloride (Saline Flush) 10 ml IV Q8 [facility] Last Admin: 04/10/16 05:39 Dose: Not Given Medical - PN: A/P - Time Spent With Patient Total time spent is greater than 50% in coordination of care (as documented) at patient's floor/unit and/or counseling patient: Greater than 35 minutes (1) Acute liver failure without hepatic coma Status: Acute Assessment and plan: * Delirium tremens secondary to alcohol withdrawal. Managed on as needed benzodiazepine. Continue ICU care * Acute liver failure-secondary to alcoholic hepatitis. Tressa discriminant function 50. Meld Na score 31- 20% mortality rate. GI recommends possible discharge once clinically improved however he is high risk to fall back on alcohol and risk of subsequent hospitalization. MRCP/liver ultrasound unremarkable for common bile duct obstruction. * Acute alcoholic hepatitis- continue prednisolone. Aggressive alcohol cessation counseling performed * Systemic inflammatory response syndrome secondary to alcoholic hepatitis induced inflammation. continue conservative management * Euvolemic hyponatremia-secondary to excessive alcoholism and liver failure * hypokalemia-resolved with replacement. Potassium at 4.5 from 3.2. * low phosphorus-start replacement * history of A. fib on amiodarone/diltiazem Plan * Supportive management with crystalloids and let right hip replacement * continue prednisolone * DT management in ICU. Close hemodynamic monitoring * Pre-existing condition management as above * high risk mortality based on MELD Na score and history of alcoholism Current Visit: Yes Medical - PN: Qual - Stroke Symptom Onset Unknown: No - VTE Deep Vein Thrombosis/Pulmonary Embolism Present on Admission: No
[2016-04-10] MEDS ORDERED: DEXTROSE 50% 50 ML VIAL IV PRN (11:53)
[2016-04-10] MEDS: INSULIN LISPRO 1 UNIT/0.01 ML UNIT SQ SCH ×3 (12:05→21:44)
[2016-04-10] MEDS: NEUTRA PHOS 1 PACKET PO SCH (21:46)
[2016-04-10] MEDS: SENNOSIDES/DOCUSATE SODIUM 1 TAB TABLET PO SCH (21:47)
[2016-04-11] MEDS: DIAZEPAM 10 MG/2 ML SYRINGE IV PRN (00:15)
[2016-04-11] MEDS: ONDANSETRON 4 MG/2 ML VIAL IV PRN ×2 (01:44→07:51)
[2016-04-11 06:24] LABS: Mean Cell Volume 99.2 fL (80.0-100.0); Mean Corpuscular HGB Conc 35.5 g/dL (31.0-36.0); Mean Corpuscular Hemoglobin 35.3 pg (26.0-34.0); Platelet Count 103 K/mcL (140-440); RBC 3.11 M/mcL (4.50-5.90); Red Cell Distribution Width 17.4 % (11.5-14.5)
[2016-04-11 07:46] LABS: Anisocytosis 1+ (NONE SEEN); Band Neutrophils % 3 % (0-10); Monocytes % (Manual) 6 % (1-9); Myelocytes % 1 % (0-0); Platelet Estimate DECREASED (NORMAL); RBC Morphology ABNORM (NORMAL); Segmented Neutrophils % 90 % (38-78); Target Cells FEW (NONE SEEN)
[2016-04-11] MEDS: INSULIN LISPRO 1 UNIT/0.01 ML UNIT SQ SCH ×4 (07:49→21:24)
[2016-04-11] MEDS: 0.9 % SODIUM CHLORIDE 10 ML SYRINGE IV SCH ×3 (07:49→21:25)
[2016-04-11] MEDS: NEUTRA PHOS 1 PACKET PO SCH ×2 (07:50→21:24)
[2016-04-11] MEDS: HEPARIN 5,000 UNIT/ML VIAL SQ SCH ×2 (07:50→21:24)
[2016-04-11] MEDS: HYDROmorphone 2 MG/ML SYRINGE IV PRN ×2 (07:50→11:52)
[2016-04-11] MEDS: PANTOPRAZOLE 40 MG VIAL IV SCH (07:50)
[2016-04-11] MEDS: FOLIC ACID 1 MG TABLET PO SCH (07:51)
[2016-04-11] MEDS: prednisoLONE 15 MG/5 ML ORAL SOL PO SCH (07:51)
[2016-04-11] MEDS: CYANOCOBALAMIN (VITAMIN B-12) 500 MCG TABLET PO SCH ×2 (07:51→21:24)
[2016-04-11] MEDS: DILTIAZEM 180 MG CAP.XL.24H PO SCH (07:51)
[2016-04-11] MEDS: AMIODARONE HCL 200 MG TABLET PO SCH (07:51)
[2016-04-11] MEDS: MULTIVIT,THER IRON,CA,FA & MIN 1 TABLET PO SCH (07:51)
[2016-04-11] MEDS: DOCUSATE SODIUM 100 MG CAPSULE PO SCH ×2 (07:51→21:22)
[2016-04-11] MEDS: DIAZEPAM 5 MG TABLET PO PRN (07:59)
[2016-04-11 08:25] LABS: ALT/SGPT 59 U/l (0-40); Albumin 2.8 gm/dL (3.2-5.2); Alkaline Phosphatase 458 U/L (39-117); Blood Urea Nitrogen 48 mg/dl (6-20); Phosphorous 2.8 mg/dL (2.7-4.5); Uric Acid 5.6 mg/dL (2.5-8.0)
[2016-04-11] MEDS: THIAMINE 100 MG in 0.9 % SODIUM CHLORIDE 50 ML IV SCH (08:34)
[2016-04-11] MEDS ORDERED: LORazepam 2 MG/ML VIAL IV PRN (15:16)
[2016-04-11] MEDS ORDERED: cloNIDine HCL 0.1 MG TABLET PO PRN (15:16)
[2016-04-11] MEDS ORDERED: OCTREOTIDE ACETATE 500 MCG in 0.9 % SODIUM CHLORIDE 499.5 ML IV SCH (16:00)
[2016-04-11] MEDS: DEXTROSE 5%-1/2NS W/20MEQ KCL 1,000 ML IV SCH (16:16)
[2016-04-11] MEDS: LORazepam 2 MG/ML VIAL IV PRN ×5 (16:16→23:59)
[2016-04-11] MEDS: OCTREOTIDE ACETATE 500 MCG in 0.9 % SODIUM CHLORIDE 499.5 ML IV SCH (16:17)
[2016-04-11] MEDS ORDERED: FLUMAZENIL 0.1 MG/ML ML IV ONE ×4 (16:50→18:05)
[2016-04-11] MEDS: ALBUMIN HUMAN 25 GM/100 ML BAG IV SCH (17:15)
[2016-04-11 17:43] LABS: Mean Cell Volume 98.9 fL (80.0-100.0); Mean Corpuscular HGB Conc 35.1 g/dL (31.0-36.0); Mean Corpuscular Hemoglobin 34.7 pg (26.0-34.0); Platelet Count 129 K/mcL (140-440); RBC 3.42 M/mcL (4.50-5.90); Red Cell Distribution Width 17.5 % (11.5-14.5)
[2016-04-11 18:05] LABS: Anisocytosis 1+ (NONE SEEN); Band Neutrophils % 2 % (0-10); Lymphocytes % 2 % (15-49); Monocytes % (Manual) 3 % (1-9); Platelet Estimate DECREASED (NORMAL); RBC Morphology ABNORM (NORMAL); Segmented Neutrophils % 93 % (38-78); Target Cells OCC (NONE SEEN)
[2016-04-11 18:20] LABS: ALT/SGPT 77 U/l (0-40); Albumin 3.1 gm/dL (3.2-5.2); Alkaline Phosphatase 515 U/L (39-117); Blood Urea Nitrogen 52 mg/dl (6-20)
--- NOTE | 2016-04-11 18:57 | Internal Med Progress Note ---
Medical - PN: Subj Patient information: Note initiated : 04/11/16 at 6:53 pm Service Date, if different from initiated Date: [] Patient: Jeffrey Mo 60 y/o M admitted on 04/08/16 for Weakness/Alcoholic Hepatitis. Chief Complaint: [] Interval history: The patient seen examined Was in DT , did not answer much questions. The patients condition was worsening throught the day, his DT required more use of sedatives, which in combinatino with his severe liver failure and hepatic encephatlopaty put the patient in deep coma needing flumazenil x 2, Flumazenal helped for a short duration. patient has also had increased oxygen requirements throughout the day. his urine output also has dropped. The patient was full code with very poor prognosis I had a family meeting with the patients , and her son, explained to them the present situation. The patients family agreed for patient to be DNR due to his poor prognosis. Patient is not comfort care as of now. I reviewed the consult by GI, started the patient on octreotide drip, as well as IV albumin to the tune of 100gms/ day. The patient was not started on dopamine in light of his cardiac arrythmia(aflutter) Pertinent ROS: unable due to mental status. - Constitutional Vitals: Vital Signs Temp Pulse Resp BP Pulse Ox 98.4 F 93 H 11 L 123/94 95 04/11/16 17:00 04/11/16 17:00 04/11/16 18:00 04/11/16 18:00 04/11/16 18:00 Period Temp Pulse Resp BP Sys/Doss Pulse Ox Last 24 Hr 97.4 F-98.9 F 86-115 9-95 95-126/65-96 88-98 Intake and Output 04/11/16 04/11/16 04/11/16 05:59 13:59 21:59 Intake Total 50 / 50 1000 / 1000 51 / 51 Output Total 400 / 400 Balance 1000 / 1000 -349 / -349 Intake & Output: Intake & Output 04/11/16 04/11/16 04/11/16 05:59 13:59 21:59 Intake Total 50 / 50 1000 / 1000 51 / 51 Output Total 400 / 400 Balance 1000 / 1000 -349 / -349 Intake: IV 1000 / 1000 51 / 51 Sodium Chloride 0.9% 1, 1000 / 1000 000 ml @ 50 mls/hr IV . Q20H [facility] Rx#:[id number] Sodium Chloride 0.9% 50 51 / 51 ml @ 50 mls/hr IV DAILY [facility] with Vitamin B1 100 mg Rx#:[id number] Oral 50 / 50 Output: Urine Catheter Amount 400 / 400 Void Amount 20 / 20 # of times incontinent of urine Other: # Bowel Movements 1 Exam: Constitutional; Afebrile, drowsy, does not follow commands Eyes- significant icterus,pupils reactive to light. Ears- Ext ear normal, Neck- Midline trachea, supple Respiratory system: Air Entry equal on both sides, No crackles or wheezing, no rhonchi. CVS- Rate rhythm irregular, S1,S2 heard, no gallop, no rub. Abdomen- Soft nontender abdomen, no organomegaly, no tenderness, no guarding or rigidity, [employer] INSTRUCTOR- AOOx0, moves extremitites Skin- Icterus of the whole body. Medical - PN: Obj Da - Labs CBC & Chem 7: 04/11/16 16:55 04/11/16 16:55 Labs: Abnormal Lab Results 04/11/16 04/11/16 04/11/16 16:55 16:55 16:55 WBC RBC Hgb Hct MCV MCH RDW Plt Count Seg Neutrophils % Lymphocytes % Monocytes % (Manual) Myelocytes % Platelet Estimate RBC Morphology Polychromasia Anisocytosis Macrocytosis Target Cells ESR PT 17.0 H INR 1.3 H Sodium 123 L Potassium Chloride 85 L Carbon Dioxide 21 L Anion Gap 17.0 H BUN 52 H Creatinine < 3.6 H Glucose 181 H Calcium 8.0 L Phosphorus Magnesium Total Bilirubin 53.2 H Direct Bilirubin Indirect Bilirubin AST 255 H ALT 77 H Alkaline Phosphatase 515 H Ammonia 229 H Lactate Dehydrogenase Albumin 3.1 L Acetaminophen 04/11/16 04/11/16 04/11/16 16:55 15:34 03:45 WBC 12.7 H RBC 3.42 L Hgb 11.9 L Hct 33.8 L MCV MCH 34.7 H RDW 17.5 H Plt Count 129 L Seg Neutrophils % 93 H Lymphocytes % 2 L Monocytes % (Manual) Myelocytes % Platelet Estimate Decreased A RBC Morphology Abnorm A Polychromasia Anisocytosis 1+ A Macrocytosis Target Cells Occ A ESR PT 16.9 H INR 1.3 H Sodium Potassium Chloride Carbon Dioxide Anion Gap BUN Creatinine Glucose Calcium Phosphorus Magnesium Total Bilirubin Direct Bilirubin Indirect Bilirubin AST ALT Alkaline Phosphatase Ammonia Lactate Dehydrogenase Albumin Acetaminophen < 5.0 L 04/11/16 04/11/16 04/10/16 03:45 03:45 04:25 WBC RBC 3.11 L Hgb 11.0 L Hct 30.9 L MCV MCH 35.3 H RDW 17.4 H Plt Count 103 L Seg Neutrophils % 90 H Lymphocytes % Monocytes % (Manual) Myelocytes % 1 H Platelet Estimate Decreased A RBC Morphology Abnorm A Polychromasia Few A Anisocytosis 1+ A Macrocytosis Target Cells Few A ESR PT INR Sodium 126 L 123 L Potassium Chloride 89 L 85 L Carbon Dioxide 20 L 21 L Anion Gap 17.0 H 17.0 H BUN 48 H 34 H Creatinine < 3.1 H Glucose 144 H 179 H Calcium 7.8 L 7.9 L Phosphorus 2.0 L Magnesium Total Bilirubin 46.2 H 42.7 H Direct Bilirubin 39.0 H 33.5 H Indirect Bilirubin AST 212 H 197 H ALT 59 H 55 H Alkaline Phosphatase 458 H 496 H Ammonia Lactate Dehydrogenase 463 H 406 H Albumin 2.8 L 2.8 L Acetaminophen 04/10/16 04/09/16 04/09/16 04:25 03:50 03:50 WBC RBC 3.18 L Hgb 10.9 L Hct 32.1 L MCV 100.9 H MCH 34.3 H RDW 17.3 H Plt Count 101 L Seg Neutrophils % 88 H Lymphocytes % 2 L Monocytes % (Manual) Myelocytes % Platelet Estimate Decreased A RBC Morphology Abnorm A Polychromasia Anisocytosis 1+ A Macrocytosis 1+ A Target Cells 1+ A ESR PT 16.4 H INR 1.3 H Sodium 123 L Potassium 3.2 L Chloride 83 L Carbon Dioxide Anion Gap 18.0 H BUN 23 H Creatinine < 1.6 H Glucose Calcium 7.9 L Phosphorus 2.0 L Magnesium 1.0 L Total Bilirubin 40.8 H Direct Bilirubin 33.0 H Indirect Bilirubin AST 210 H ALT 54 H Alkaline Phosphatase 533 H Ammonia Lactate Dehydrogenase 395 H Albumin 2.9 L Acetaminophen 04/09/16 04/08/16 04/08/16 03:50 17:22 17:22 WBC RBC 3.36 L Hgb 11.6 L Hct 33.8 L MCV 100.4 H MCH 34.4 H RDW 16.8 H Plt Count 103 L Seg Neutrophils % Lymphocytes % 10 L Monocytes % (Manual) 10 H Myelocytes % Platelet Estimate Decreased A RBC Morphology Abnorm A Polychromasia Few A Anisocytosis 1+ A Macrocytosis 1+ A Target Cells Few A ESR 19 H PT INR Sodium Potassium Chloride Carbon Dioxide Anion Gap BUN Creatinine Glucose Calcium Phosphorus Magnesium Total Bilirubin 42.8 H Direct Bilirubin 34.2 H Indirect Bilirubin 8.6 H AST ALT Alkaline Phosphatase Ammonia Lactate Dehydrogenase Albumin Acetaminophen Meds: Medications Albuterol/Ipratropium (Duoneb) 3 ml NEB Q4HRT [facility] Amiodarone HCl (Cordarone) 200 [facility] Last Admin: 04/11/16 07:51 Dose: 200 mg Bisacodyl (Dulcolax) 10 mg [place] Q2-3DAYS PRN PRN Reason: Constipation Clonidine HCl (Catapres) 0.1 mg PO Q4HP PRN PRN Reason: Alcohol Withdrawal Cyanocobalamin (Vitamin B-12) 1,000 mcg PO BID [facility] Stop: 04/13/16 09:01 Last Admin: 04/11/16 07:51 Dose: 1,000 mcg Dextrose (Dextrose 50%) 0 ml IV UD PRN PRN Reason: Hypoglycemia Diagnostic Test (Pha) (Accu-Chek) 1 each FS ACHS [facility] Last Admin: 04/11/16 16:56 Dose: 1 each Diltiazem HCl (Cardizem Cd) 180 mg PO DAILY [facility] Last Admin: 04/11/16 07:51 Dose: 180 mg Docusate Sodium (Colace) 100 mg PO BID [facility] Last Admin: 04/11/16 07:51 Dose: Not Given Flumazenil (Romazicon) 0.2 mg IV ONCE ONE Stop: 04/11/16 16:51 Last Admin: 04/11/16 16:56 Dose: 0.2 mg Flumazenil (Romazicon) 0.2 mg IV ONCE ONE Stop: 04/11/16 17:57 Last Admin: 04/11/16 17:57 Dose: Not Given Folic Acid (Folic Acid) 1 mg PO DAILY [facility] [place] Last Admin: 04/11/16 07:51 Dose: 1 mg Guaifenesin/Codeine Phosphate (Robitussin Ac) 10 ml PO Q4HP PRN PRN Reason: Cough Heparin Sodium (Porcine) (Heparin) 5,000 unit SQ Q12 [facility] [place] Last Admin: 04/11/16 07:50 Dose: 5,000 unit Hydromorphone HCl (Dilaudid) 0 mg IV Q4HP PRN PRN Reason: Pain Last Admin: 04/11/16 11:52 Dose: 0.5 mg Magnesium Sulfate (Magnesium Sulfate) 2 gm in 50 mls @ 50 mls/hr IV UD PRN PRN Reason: MG = or < 1.7 Last Infusion: 04/10/16 10:25 Dose: Infused Thiamine HCl 100 mg/ Sodium (Chloride) 51 mls @ 50 mls/hr IV DAILY [facility] [place] Potassium Chloride/Dextrose/Sod Cl (Dextrose 5%-1/2ns W/20meq Kcl) 1,000 mls @ 84 mls/hr IV .[id number] [facility] [place] Stop: 04/14/16 03:01 Last Admin: 04/11/16 16:16 Dose: 84 mls/hr Albumin Human (Buminate) 25 gm in 100 mls @ 100 mls/hr IV Q6H [facility] Last Admin: 04/11/16 17:15 Dose: 100 mls/hr Octreotide Acetate 500 mcg/ (Sodium Chloride) 500 mls @ 50 mls/hr IV Q10H [facility] PRN Reason: 50 MCG/HR Last Admin: 04/11/16 16:17 Dose: 50 mcg/hr, 50 mls/hr Insulin Human Lispro (Humalog) 0 unit SQ ACHS [facility] PRN Reason: Protocol Last Admin: 04/11/16 16:56 Dose: Not Given Iron Carb/Multivit/Hat Conditioner/Folic Acid (Multivitamin W/Minerals) 1 tab PO DAILY [facility] Last Admin: 04/11/16 07:51 Dose: 1 tab Lorazepam (Ativan) 0 mg IV Q4HP PRN; Protocol PRN Reason: Alcohol Withdrawal Last Admin: 04/11/16 18:08 Dose: 2 mg Ondansetron HCl (Zofran) 4 mg IV Q4-6HP PRN PRN Reason: Nausea And Vomiting Last Admin: 04/11/16 07:51 Dose: 4 mg Pantoprazole Sodium (Protonix) 40 mg IV QAMAC [facility] [place] Last Admin: 04/11/16 07:50 Dose: 40 mg Potassium Chloride (Klor-Con) 40 meq PO DAILYP PRN PRN Reason: K+ < 3.5 Last Admin: 04/09/16 16:32 Dose: 40 meq Potassium/Phosphorus/Sodium (Neutra Phos) 2 packet PO BID [facility] [place] Last Admin: 04/11/16 07:50 Dose: 2 packet Prednisone (Prednisolone) 40 mg PO QAC [facility] [place] Last Admin: 04/11/16 07:51 Dose: 40 mg Senna/Docusate Sodium (Senna Plus Tablet) 1 tab PO HS [facility] [place] Last Admin: 04/10/16 21:47 Dose: Not Given Sodium Chloride (Saline Flush) 10 ml IV Q8 [facility] Last Admin: 04/11/16 14:19 Dose: 10 ml Medical - PN: A/P - Time Spent With Patient Total time spent is greater than 50% in coordination of care (as documented) at patient's floor/unit and/or counseling patient: (1) Alcoholic hepatitis Status: Acute Current Visit: Yes (2) Alcohol withdrawal Status: Acute Current Visit: No (3) Atrial fibrillation with rapid ventricular response Status: Acute Current Visit: No (4) Diabetes mellitus, type II Problem details: Adult onset noninsulin dependent diabetes. Status: Chronic Current Visit: No (5) Hepatorenal syndrome Status: Acute Current Visit: Yes - Narrative A/P Narrative: The patient is in DT, needing ATivan, unfortunately use of ativan puts him in severe cardio resp distress. HOld ativan for now. will use only very low dose of ativan as needed patient has poor prognosis, INR still holding. but has increased oxygen needs as well as decreased urine output, likely going to Hepatorenal syndrome. Will discuss with nephrology. Continue supportive measures, IV fluids, IV thiamine, Prednisone, and oxygen supplementation as needed Given his multiple relapses from Etoh as per the family as well as pcp note, he is unlikely a candiate for liver transplant. Should his liver function worsen, as per GI will consider transfer to higher center if family agrees and pt accepted.; check hepatitis panel, hiv, tylenol levels. Medical - PN: Qual - Stroke Symptom Onset Unknown: No - VTE Deep Vein Thrombosis/Pulmonary Embolism Present on Admission: No
[2016-04-11] MEDS: IPRATROPIUM/ALBUTEROL 3 ML AMPUL.NEB NEB SCH ×2 (19:55→23:09)
--- NOTE | 2016-04-11 19:56 | XRay Report ---
CLINICAL INFORMATION: Hypoxia TECHNIQUE: Upright AP portable chest x-ray COMPARISON: 01/17/2016 FINDINGS: Relatively shallow inspiration. Cardiomegaly. There is probable interstitial pulmonary edema. No focal parenchymal infiltrate or mass. No detectable pleural fluid. IMPRESSION: 1. Cardiomegaly 2. Probable interstitial edema. Interpreted and Authenticated by: Terry Mehta 04/11/16
[2016-04-11] MEDS: SENNOSIDES/DOCUSATE SODIUM 1 TAB TABLET PO SCH (21:24)
[2016-04-12] MEDS: ALBUMIN HUMAN 25 GM/100 ML BAG IV SCH ×3 (00:30→10:59)
[2016-04-12] MEDS: OCTREOTIDE ACETATE 500 MCG in 0.9 % SODIUM CHLORIDE 499.5 ML IV SCH ×2 (02:10→13:03)
[2016-04-12] MEDS: LORazepam 2 MG/ML VIAL IV PRN ×6 (02:39→16:39)
[2016-04-12] MEDS: IPRATROPIUM/ALBUTEROL 3 ML AMPUL.NEB NEB SCH ×6 (03:24→23:40)
[2016-04-12] MEDS ORDERED: IPRATROPIUM/ALBUTEROL 3 ML AMPUL.NEB NEB ONE (03:35)
[2016-04-12] MEDS: DEXTROSE 5%-1/2NS W/20MEQ KCL 1,000 ML IV SCH (04:13)
[2016-04-12] MEDS: 0.9 % SODIUM CHLORIDE 10 ML SYRINGE IV SCH ×2 (06:24→13:04)
[2016-04-12 06:36] LABS: Mean Cell Volume 100.4 fL (80.0-100.0); Mean Corpuscular Hemoglobin 36.1 pg (26.0-34.0); Platelet Count 127 K/mcL (140-440); Red Cell Distribution Width 17.6 % (11.5-14.5)
[2016-04-12] MEDS: INSULIN LISPRO 1 UNIT/0.01 ML UNIT SQ SCH ×3 (07:01→15:08)
[2016-04-12] MEDS: AMIODARONE HCL 200 MG TABLET PO SCH (07:03)
[2016-04-12] MEDS: prednisoLONE 15 MG/5 ML ORAL SOL PO SCH (07:03)
[2016-04-12] MEDS: DILTIAZEM 180 MG CAP.XL.24H PO SCH (07:04)
[2016-04-12] MEDS: DOCUSATE SODIUM 100 MG CAPSULE PO SCH (07:04)
[2016-04-12] MEDS: FOLIC ACID 1 MG TABLET PO SCH (07:04)
[2016-04-12] MEDS: NEUTRA PHOS 1 PACKET PO SCH (07:05)
[2016-04-12] MEDS: MULTIVIT,THER IRON,CA,FA & MIN 1 TABLET PO SCH (07:05)
[2016-04-12] MEDS: CYANOCOBALAMIN (VITAMIN B-12) 500 MCG TABLET PO SCH (07:05)
[2016-04-12 07:19] LABS: Anisocytosis 1+ (NONE SEEN); Band Neutrophils % 6 % (0-10); Lymphocytes % 4 % (15-49); Macrocytosis 1+ (NONE SEEN); Monocytes % (Manual) 3 % (1-9); Platelet Estimate DECREASED (NORMAL); RBC Morphology ABNORM (NORMAL); Segmented Neutrophils % 87 % (38-78); Target Cells OCC (NONE SEEN)
[2016-04-12 07:33] LABS: ALT/SGPT 74 U/l (0-40); Albumin 3.3 gm/dL (3.2-5.2); Alkaline Phosphatase 417 U/L (39-117); Blood Urea Nitrogen 61 mg/dl (6-20); Magnesium 2.1 mg/dL (1.6-2.5); Phosphorous 5.4 mg/dL (2.7-4.5); Uric Acid 6.2 mg/dL (2.5-8.0)
[2016-04-12] MEDS ORDERED: DEXTROSE 5% IV SCH (09:00)
[2016-04-12] MEDS ORDERED: THIAMINE 100 MG in 0.9 % SODIUM CHLORIDE 50 ML IV SCH (09:00)
[2016-04-12] MEDS ORDERED: WATER IV SCH (09:00)
[2016-04-12] MEDS ORDERED: AMIODARONE IV SCH (09:00)
[2016-04-12] MEDS ORDERED: methylPREDNISolone SOD SUCC 40 MG/ML VIAL IV SCH (09:18)
[2016-04-12] MEDS ORDERED: POTASSIUM CHLORIDE 20 MEQ, MAGNESIUM SULFATE 16.24 MEQ, THIAMINE 100 MG, MVI, ADULT NO.... IV SCH (09:30)
[2016-04-12] MEDS: HEPARIN 5,000 UNIT/ML VIAL SQ SCH (09:39)
[2016-04-12] MEDS: PANTOPRAZOLE 40 MG VIAL IV SCH (10:22)
[2016-04-12] MEDS ORDERED: SCOPOLAMINE 1 PATCH PATCH TOPICAL ONE (10:47)
[2016-04-12 12:25] LABS: Appearance,Urine CLOUDY; Bacteria,Urine FEW /hpf (0); Color,Urine RED; Glucose,Urine (UA) 150 mg/dL (NEG); Leukocyte Esterase,Urine 25 /uL (NEG); Mucus,Urine MOD /hpf (0); Nitrate,Urine NEG (NEG); Protein,Urine 100 mg/dL (NEG); Specific Gravity,Urine 1.017 (1.000-1.035); Urine Blood >=1.0 mg/dL (<0.03); Urine RBC > 182 /hpf (0-1); Urine Squamous Epithelial Cell 5 /hpf (0-4); Urine WBC > 182 /hpf (0-4)
--- NOTE | 2016-04-12 14:01 | Nephrology Consult Note ---
History of Present Illness - Reason for Consult Patient information: Note initiated : 04/12/16 at 1:55 pm Service Date, if different from initiated Date: [] Patient: Jeffrey Mo 60 y/o M admitted on 04/08/16 for Weakness/Alcoholic Hepatitis. Chief Complaint: [] Consult date: 04/12/16 acute renal failure Requesting physician: Armani Coleman - Chief Complaint liver failure - History of Present Illness Mr Mo is a 60 y/o white male who is admitted with acute liver failure Patient is obtunded and not able to provide any history information obtained from his and review of medical records Patient presented to the ED on 04/08 with c/o weakness, he was found to have profound jaundice and abdominal distention, labs revealed bilirubin of almost 40 , patient was hospitalised with acute on chronic liver failure He had MRCP done which showed no obstructive lesion, liver however appeared nodular and cirrhotic Patient was been managed for this with steroids, ativan for delirium tremens, IV fluids and MV His hospital course was further complicated by delirium tremens (apparently he was drinking almost a gallon of alcohol every day per ), hepatic encephalopathy (ammonia elevated to more than 200), persistent hyponatremia and liver failure nephrology was consulted for renal failure and possibility of dialysis Review of Systems ROS unobtainable: due to mental status Past History Past medical history: htn, afib, CHF, ? COPD, DM type 2, dyslipidemia Past surgical history: h/o cholecystectomy h/o surgery/intervention for Afib Past family history: father had h/o colon cancer and at age of 53 mother alive Past social history: worked at [employer] h/o alcohol abuse per went to rehab this summer, resumed drinking right away after discharge , alcohol intake had increased recently Medications and Allergies Home Medications Medication Instructions Recorded Confirmed Type Amiodarone HCl [Cordarone] 200 mg PO [facility] 04/08/16 04/08/16 History Diltiazem [Cardizem Cd] 180 mg PO DAILY 04/08/16 04/08/16 History Furosemide [Lasix] 40 mg PO DAILY 04/08/16 04/08/16 History Methocarbamol [Robaxin] 500 mg PO QIDP PRN 04/08/16 04/08/16 History traMADol [Ultram] 50 mg PO TID PRN 04/08/16 04/08/16 History Allergies Allergy/AdvReac Type Severity Reaction Status Date / Time No Known Drug Allergies Allergy Verified 03/13/16 15:15 Exam - Vital Signs Vital signs: Temp Pulse Resp BP Pulse Ox 98.6 F 82 16 114/90 93 04/12/16 12:00 04/12/16 12:14 04/12/16 13:00 04/12/16 13:00 04/12/16 13:00 - General Appearance General appearance: appears started age, obese EENT: mucous membranes dry Neck: no JVD Respiratory: rales Cardiology: no rub, edema, irregular rhythm Gastrointestinal: tenderness (distended, tenderness +) Integumentary: warm and dry (profound icterus, all over ) Neurologic: obtunded Musculoskeletal: no cyanosis Results - Lab Results 04/12/16 03:45 04/12/16 03:45 Most recent lab results Calcium 7.7 mg/dl (8.6-10.4) L 04/12/16 03:45 Phosphorus 5.4 mg/dL (2.7-4.5) H 04/12/16 03:45 Magnesium 2.1 mg/dL (1.6-2.5) 04/12/16 03:45 Assessment and Plan (1) Acute renal failure (ARF) Patient is anuric since this am, only 3 cc urine output gradually declining renal function UA with proteinuria and hematuria Urine sodium 57 Likely has ATN, ? has some glomerulopathy he also is volume overloaded with 2-3 + edema and CXR also reveals IE given his volume status and oligoanuric renal failure, discussed possibility of dialysis (offered this) with his , Aria (she also is his POA) Discussed risk and benefit at length, discussed not doing this may lead to his within days I do not think dialysis with change the outcome for this patient this hospitalisation, however if the family is willing we may pursue this The however has refused any further intervention and has opted for comfort measures only Acute on chronic liver failure Hepatic encephalopathy volume overload Delirium tremens Afib alcohol abuse Thank you for giving me an opportunity to participate in Mr Mo's medical care , appreciate it Status: Acute
[2016-04-12] MEDS ORDERED: GLYCOPYRROLATE 0.2 MG/ML VIAL IV ONE (14:07)
--- NOTE | 2016-04-12 18:10 | Internal Med Progress Note ---
Medical - PN: Subj Patient information: Note initiated : 04/12/16 at 6:03 pm Service Date, if different from initiated Date: [] Patient: Jeffrey Mo 60 y/o M admitted on 04/08/16 for Weakness/Alcoholic Hepatitis. Chief Complaint: [] Interval history: The patient seen examined, overnight events noted The patient had some bleeding per rectum, which resolved spontaneously and epistaxis when they tried to do deep suction. Has had no urine output since yesterday Increased oxygen requirement, patient INR worsened to 1.4, but has more bleeding. Patient Xray also shows interstitial edema. Mental status worsened, patient obtunded and has interment jerks. Family / who is POA and son at bedside, poor prognosis explained, noted that patients condition is not improving, the patient has very poor prognosis in light of his severe alcoholic hepatitis, recurrent relapse from etoh in past , not a candidate for liver transplant, (GI also agrees). I had offered transfer to [facility], but I am not sure what else would be done. Patients family was not keen on transfer. I reviewed the case with GI, who noted that poor prognosis and very high risk of mortality given patient hepatitis and now renal failure. I reviewed the case with Nephrology, who noted that patient likely has ATN, family was offered dialysis but it was declined. Given the declining condition, family has opted for comfort care measures. WIll d/c non comfort care meds. DNR CC Order in file. Will d/c fluids and keep pt comfortable. Prognosis GRIM, anticipated tonight. Pertinent ROS: unable. Additional PMFSH (Level 3 Only): reviewed, very high etoh use. - Constitutional Vitals: Vital Signs Temp Pulse Resp BP Pulse Ox 97.4 F L 85 19 106/69 78 L 04/12/16 16:00 04/12/16 17:54 04/12/16 17:54 04/12/16 17:54 04/12/16 17:54 Period Temp Pulse Resp BP Sys/Doss Pulse Ox Last 24 Hr 97.1 F-98.6 F 72-90 9-23 104-152/66-96 78-100 Intake and Output 04/12/16 04/12/16 04/12/16 05:59 13:59 21:59 Intake Total 1587 / 1587 1114 / 1114 632 / 632 Output Total 50 / 50 3 / 3 Balance 1537 / 1537 1114 / 1114 629 / 629 Intake & Output: Intake & Output 04/12/16 04/12/16 04/12/16 05:59 13:59 21:59 Intake Total 1587 / 1587 1114 / 1114 632 / 632 Output Total 50 / 50 3 / 3 Balance 1537 / 1537 1114 / 1114 629 / 629 Intake: IV 1587 / 1587 1114 / 1114 632 / 632 Dextrose 5% in Water 50 52 / 52 ml @ 104 mls/hr IV DAILY DEB with Cordarone 100 mg Rx#:[id number] Dextrose 5%-1/2Ns W/20Meq 994 / 994 514 / 514 0 / 0 KCl 1,000 ml @ 84 mls/hr IV .[id number] DEB Rx#: [id number] Sandostatin 500 Mcg In 493 / 493 500 / 500 0 / 0 Sodium Chloride 0.9% 499. 5 ml @ 50 MCG/HR 50 mls/ hr IV Q10H DEB Rx#: [id number] Output: Urine Catheter Amount 50 / 50 3 3 Exam: Constitutional; Afebrile, obtunded non responsive. Eyes- icterus, Pupils equal, reactive, No periorbital swelling Ears- Ext ear normal, hearing normal to conversation. Neck- Midline trachea, supple Respiratory system: Air Entry equal on both sides, bernie crackles, gurgling sound in upper airway. CVS- Rate rhythm irregular, S1,S2 heard, no gallop, no rub. Abdomen- distended, no localized tenderness. JEWELRY FACER- AOOx0, obtunded, moves extremities to pain. Skin- Gen EDEMA / icterus Medical - PN: Obj Da - Labs CBC & Chem 7: 04/12/16 03:45 04/12/16 03:45 Labs: Abnormal Lab Results 04/12/16 04/12/16 04/12/16 11:39 11:39 06:55 WBC RBC Hgb Hct MCV MCH RDW Plt Count Seg Neutrophils % Lymphocytes % Myelocytes % Platelet Estimate RBC Morphology Polychromasia Anisocytosis Macrocytosis Target Cells PT 17.4 H INR 1.4 H Sodium Chloride Carbon Dioxide Anion Gap BUN Creatinine Glucose Calcium Phosphorus Total Bilirubin Direct Bilirubin AST ALT Alkaline Phosphatase Ammonia Lactate Dehydrogenase Albumin Urine Protein 100 A Urine Glucose (UA) 150 A Urine Occult Blood >=1.0 A Urine Urobilinogen 2.0 A Ur Leukocyte Esterase 25 A Urine RBC > 182 H Urine WBC > 182 H Ur Squamous Epith Cells 5 H Urine Bacteria Few A U [place] Prot/Creat Ratio 9.59 H Acetaminophen 04/12/16 04/12/16 04/11/16 03:45 03:45 16:55 WBC 11.5 H RBC 3.00 L Hgb 10.8 L Hct 30.1 L MCV 100.4 H MCH 36.1 H RDW 17.6 H Plt Count 127 L Seg Neutrophils % 87 H Lymphocytes % 4 L Myelocytes % Platelet Estimate Decreased A RBC Morphology Abnorm A Polychromasia Anisocytosis 1+ A Macrocytosis 1+ A Target Cells Occ A PT INR Sodium 125 L Chloride 87 L Carbon Dioxide 17 L Anion Gap 21.0 H BUN 61 H Creatinine < 4.2 H Glucose 177 H Calcium 7.7 L Phosphorus 5.4 H Total Bilirubin 51.5 H Direct Bilirubin 44.0 H AST 235 H ALT 74 H Alkaline Phosphatase 417 H Ammonia 229 H Lactate Dehydrogenase 416 H Albumin Urine Protein Urine Glucose (UA) Urine Occult Blood Urine Urobilinogen Ur Leukocyte Esterase Urine RBC Urine WBC Ur Squamous Epith Cells Urine Bacteria U [place] Prot/Creat Ratio Acetaminophen 04/11/16 04/11/16 04/11/16 16:55 16:55 16:55 WBC 12.7 H RBC 3.42 L Hgb 11.9 L Hct 33.8 L MCV MCH 34.7 H RDW 17.5 H Plt Count 129 L Seg Neutrophils % 93 H Lymphocytes % 2 L Myelocytes % Platelet Estimate Decreased A RBC Morphology Abnorm A Polychromasia Anisocytosis 1+ A Macrocytosis Target Cells Occ A PT 17.0 H INR 1.3 H Sodium 123 L Chloride 85 L Carbon Dioxide 21 L Anion Gap 17.0 H BUN 52 H Creatinine < 3.6 H Glucose 181 H Calcium 8.0 L Phosphorus Total Bilirubin 53.2 H Direct Bilirubin AST 255 H ALT 77 H Alkaline Phosphatase 515 H Ammonia Lactate Dehydrogenase Albumin 3.1 L Urine Protein Urine Glucose (UA) Urine Occult Blood Urine Urobilinogen Ur Leukocyte Esterase Urine RBC Urine WBC Ur Squamous Epith Cells Urine Bacteria U [place] Prot/Creat Ratio Acetaminophen 04/11/16 04/11/16 04/11/16 15:34 03:45 03:45 WBC RBC Hgb Hct MCV MCH RDW Plt Count Seg Neutrophils % Lymphocytes % Myelocytes % Platelet Estimate RBC Morphology Polychromasia Anisocytosis Macrocytosis Target Cells PT 16.9 H INR 1.3 H Sodium 126 L Chloride 89 L Carbon Dioxide 20 L Anion Gap 17.0 H BUN 48 H Creatinine < 3.1 H Glucose 144 H Calcium 7.8 L Phosphorus Total Bilirubin 46.2 H Direct Bilirubin 39.0 H AST 212 H ALT 59 H Alkaline Phosphatase 458 H Ammonia Lactate Dehydrogenase 463 H Albumin 2.8 L Urine Protein Urine Glucose (UA) Urine Occult Blood Urine Urobilinogen Ur Leukocyte Esterase Urine RBC Urine WBC Ur Squamous Epith Cells Urine Bacteria U [place] Prot/Creat Ratio Acetaminophen < 5.0 L 04/11/16 04/10/16 04/10/16 03:45 04:25 04:25 WBC RBC 3.11 L 3.18 L Hgb 11.0 L 10.9 L Hct 30.9 L 32.1 L MCV 100.9 H MCH 35.3 H 34.3 H RDW 17.4 H 17.3 H Plt Count 103 L 101 L Seg Neutrophils % 90 H 88 H Lymphocytes % 2 L Myelocytes % 1 H Platelet Estimate Decreased A Decreased A RBC Morphology Abnorm A Abnorm A Polychromasia Few A Anisocytosis 1+ A 1+ A Macrocytosis 1+ A Target Cells Few A 1+ A PT INR Sodium 123 L Chloride 85 L Carbon Dioxide 21 L Anion Gap 17.0 H BUN 34 H Creatinine Glucose 179 H Calcium 7.9 L Phosphorus 2.0 L Total Bilirubin 42.7 H Direct Bilirubin 33.5 H AST 197 H ALT 55 H Alkaline Phosphatase 496 H Ammonia Lactate Dehydrogenase 406 H Albumin 2.8 L Urine Protein Urine Glucose (UA) Urine Occult Blood Urine Urobilinogen Ur Leukocyte Esterase Urine RBC Urine WBC Ur Squamous Epith Cells Urine Bacteria U [place] Prot/Creat Ratio Acetaminophen Meds: Medications Albuterol/Ipratropium (Duoneb) 3 ml NEB Q4HRT [facility] Last Admin: 04/12/16 15:51 Dose: 3 ml Clonidine HCl (Catapres) 0.1 mg PO Q4HP PRN PRN Reason: Alcohol Withdrawal Cyanocobalamin (Vitamin B-12) 1,000 mcg PO BID [facility] Stop: 04/13/16 09:01 Last Admin: 04/12/16 07:05 Dose: Not Given Dextrose (Dextrose 50%) 0 ml IV UD PRN PRN Reason: Hypoglycemia Diagnostic Test (Pha) (Accu-Chek) 1 each FS ACHS [facility] Last Admin: 04/12/16 15:07 Dose: 1 each Diltiazem HCl (Cardizem Cd) 180 mg PO DAILY [facility] Last Admin: 04/12/16 07:04 Dose: Not Given Potassium Chloride 20 meq/Magnesium Sulfate 16.24 meq/Thiamine HCl 100 mg/ Multivitamins/Minerals 10 ml/Sodium Chloride 1,025 mls @ 100 mls/hr IV DAILY [facility] Insulin Human Lispro (Humalog) 0 unit SQ ACHS DEB PRN Reason: Protocol Last Admin: 04/12/16 15:08 Dose: Not Given Lorazepam (Ativan) 0 mg IV Q4HP PRN; Protocol PRN Reason: Alcohol Withdrawal Last Admin: 04/12/16 16:39 Dose: 2 mg Morphine Sulfate (Morphine) 2 mg IV Q2HP PRN PRN Reason: Pain/ Shortness of breath Last Admin: 04/12/16 16:39 Dose: 2 mg Ondansetron HCl (Zofran) 4 mg IV Q4-6HP PRN PRN Reason: Nausea And Vomiting Last Admin: 04/11/16 07:51 Dose: 4 mg Pantoprazole Sodium (Protonix) 40 mg IV QAMAC [facility] Last Admin: 04/12/16 10:22 Dose: 40 mg Senna/Docusate Sodium (Senna Plus Tablet) 1 tab PO HS [facility] Last Admin: 04/11/16 21:24 Dose: Not Given Sodium Chloride (Saline Flush) 10 ml IV Q8 [facility] Last Admin: 04/12/16 13:04 Dose: 10 ml Medical - PN: A/P - Time Spent With Patient Total time spent is greater than 50% in coordination of care (as documented) at patient's floor/unit and/or counseling patient: Greater than 35 minutes (1) Alcoholic hepatitis Status: Acute Current Visit: Yes (2) Alcohol withdrawal Status: Acute Current Visit: No (3) Atrial fibrillation with rapid ventricular response Status: Acute Current Visit: No (4) Diabetes mellitus, type II Problem details: Adult onset noninsulin dependent diabetes. Status: Chronic Current Visit: No (5) Acute renal failure (ARF) Status: Acute Current Visit: Yes - Narrative A/P Narrative: The patient poor prognosis discussed with family Patient family elected for comfort care measures, no aggresive treatment, GI is in agreement with same, Nephrology evaluated and offered dialysis as a last ditch effort, which was declined by family. comfort care only for now, Ativan for anxiety morphine for air hunger and pain no more labs anticipated. Medical - PN: Qual - Stroke Symptom Onset Unknown: No - VTE Deep Vein Thrombosis/Pulmonary Embolism Present on Admission: No
[2016-04-13 04:58] LABS: Hepatitis A Antibody IgM NON REACTIVE (NEGATIVE); Hepatitis B Core IgM NON REACTIVE (NEGATIVE); Hepatitis B Surface Antibody NEGATIVE (NEGATIVE); Hepatitis B Surface Antigen NEGATIVE (NEGATIVE); Hepatitis C Virus Antibody NON REACTIVE (NEGATIVE)
[2016-04-13] MEDS ORDERED: methylPREDNISolone SOD SUCC 40 MG/ML VIAL IV SCH (09:00)
[2016-04-13] MEDS ORDERED: POTASSIUM CHLORIDE 20 MEQ, MAGNESIUM SULFATE 16.24 MEQ, THIAMINE 100 MG, MVI, ADULT NO.... IV SCH (09:00)
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
[2016-04-20 07:33] LABS: Hepatitis Delta Antibody NEGATIVE
--- NOTE | 2016-04-20 12:44 | History and Physical Report ---
DATE OF ADMISSION: 04/08/2016 DATE OF ADMISSION: 04/08/2016 REASON FOR ADMISSION: Yellow discoloration of skin, urine, weakness, and fatigue. HISTORY OF CHIEF COMPLAINT: Jeffrey is a 60-year-old with a history of significant alcoholism who comes to [facility] emergency room with the above symptoms. HISTORY OF PRESENT ILLNESS: The patient has a history of excessive drinking, up to a gallon of hard alcohol every day. Over the last 2-3 weeks, the patient has noted increasing abdominal distention, yellow discoloration of skin and urine, dark colored stools. He also has associated significant fatigue and weakness. He has continued to drink during this time. He also endorses abdominal discomfort, especially with deep breathing, and diffuse tenderness around the upper abdomen, described as 6 out 10 to 7 out of 10, made worse with eating and movement. He denies diarrhea, dysuria, headache, photophobia, with endorsing severe fatigue, lethargy, and inability to function. Over the last couple of weeks, the patient has gotten progressively yellow and got concerned and came to [facility] ER where initial workup was significant for severe jaundice with a bilirubin of 41, elevated LFTs, potassium of 2.8, sodium 123. Hospitalist Service was consulted. The patient underwent right upper quadrant ultrasound which did not show any ductal occlusion. GI was consulted. Hospitalist Service was requested for admission. At the time of examination, the patient is accompanied with his significant other. He was able to provide most of the history. He is extremely fatigued, anxious. He denies fever, shaking chills, drenching sweats, headache, photophobia, or ENT symptoms. He denies glandular swelling. He denies injection drug abuse. He has a history of atrial fibrillation for which he used to follow with Dr. Zurita, but currently no longer follows up with him and does not have a primary care physician. REVIEW OF SYSTEMS: Ten-point review of system was performed and negative except the ones discussed above. PAST MEDICAL HISTORY: 1. Significant for history of severe alcoholism. 2. Atrial fibrillation. 3. History of systolic heart failure. 4. COPD. 5. Anxiety disorder. 6. Diabetes mellitus type 2. ALLERGIES: NONE SIGNIFICANT. FAMILY HISTORY: Colon cancer in father. SOCIAL HISTORY: The patient is and lives with his in the [place]. He drinks excessive amount of hard alcohol, actively smokes. Denies substance abuse. PHYSICAL EXAMINATION: GENERAL: The patient is remarkably yellow. BMI 30. Height 6 feet 2 inches. Significant distress, anxious. VITAL SIGNS: Blood pressure 126/85, respiration rate 15, temperature 91.1, pulse 122, saturations 96% on room air. HEENT: Pupils symmetric. Oral cavity is dry. [place] sclerae. No ear or nose discharge. NECK: No lymphadenopathy. CHEST: S1 and S2. Tachycardia. ESM grade 1. Diminished breath sounds at bases. ABDOMEN: Distended and diffusely tender, organomegaly, including hepatosplenomegaly, sluggish bowel sounds. LOWER EXTREMITIES: Significant for stasis changes, venous dermatitis along with extensive edema, but no cyanosis or clubbing. No joint swelling or erythema. SKIN: Otherwise, no suspicious lesion other than diffuse icterus and stasis changes in lower extremities. PSYCH: Anxious, but no agitation or hallucination. NEURO: Minimal flapping tremor. LABS AND IMAGING: White count 6.4, hemoglobin 12.2, platelets 108, MCV 100. INR 1.2. Sodium 122, potassium 2.8, creatinine less than 1.3, BUN 19, bilirubin 40.5, AST 212, ALT 60, alkaline phosphatase 569. Ammonia 64, albumin 2.9. UA, bilirubin positive. Otherwise unremarkable. Alcohol 0.127. Renal abdominal ultrasound: Echogenic liver consistent with hepatic steatosis. ASSESSMENT AND PLAN: A 60-year-old admitted with acute alcoholic hepatitis in light of excessive alcoholism. 1. Acute alcoholic hepatitis, Maddrey's discriminant function over 40. The patient would benefit from steroids; however, at this time, infectious etiology will be ruled out. Given INR of 1.2, the patient would have a favorable prognosis once alcoholic hepatitis resolves. The patient will be counseled on aggressive alcohol rehabilitation and cessation. 2. Systemic inflammatory response syndrome secondary to alcoholic hepatitis. Continue crystalloids, close hemodynamic monitoring. 3. Hyponatremia secondary to alcoholic liver disease. Continue close monitoring. 4. Hypokalemia. Start oral and IV replacement. 5. History of atrial fibrillation. Continue amiodarone. 6. History of systolic heart failure. Avoid excessive crystalloids. 7. Severe hyperbilirubinemia. Await fractionated bilirubin, likely secondary to alcoholic hepatitis. Continue monitoring. PLAN FOR TODAY: 1. Admit in ICU in light of critical nature of illness including hypokalemia, hyponatremia and acute alcoholic hepatitis with discriminant function over 40. 2. GI consult. 3. Preexisting medical condition management on home medications. 4. Watch for alcohol withdrawal. Continue as needed Ativan along with as needed benzodiazepine. Total time spent on history and physical: 55 minutes. In addition, 35 minutes critical care time spent on stabilization of patient, transferring to ICU, management of hypokalemia and treatment plan formulation, including discussion with gastroenterology. The patient remains a high risk for alcohol withdrawal/DTs and will require close intensive care monitoring. AA:cam Job ID: [id number] Doc ID: [id number] Victor Hugo [place]
== END 2016-04-13 11:28 | disposition expired | DRG 432 ==
LOC: ED 10:57 → ICU 17:15
PROVIDERS: ADMIT Internal Medicine; ATTEND Internal Medicine